=== PATIENT | male | born 1940 | race Caucasian/White ===

== ENCOUNTER → 2018-06-26 | Outpatient (CLI) | payer MEDICARE ==
[~2018-06-26] MED LIST: KEFLEX500 M1 PO; LYRICA300 MG PO; PREDNISONE 10 M10 MG PO; [UNRECOGNIZED DRUG - OTHER]
[2018-06-26 11:02] LABS: PROTIME 10.4 Seconds (9.20-11.50)
[2018-06-26 13:02] VITALS: BP 152/75
[2018-06-26 13:16] LABS: CSF CLARITY CLEAR; CSF COLOR COLORLESS; CSF RBC 114 /mm3; CSF WBC 2 /mm3 (0-10); VOLUME 20 ml
[2018-06-26 13:19] LABS: CSF GLUCOSE 55 mg/dl (40-70)
[2018-06-26 13:29] VITALS: BP 143/66
== END | disposition home or self-care (01) ==
LOC: M.RAD 09:47
PROVIDERS: Psychiatry & Neurology Neurology
DX: G91.2 (Idiopathic) normal pressure hydrocephalus (principal); R27.0 Ataxia, unspecified; Z79.899 Other long term (current) drug therapy; Z79.01 Long term (current) use of anticoagulants

== ENCOUNTER 2018-07-17 12:19 | Emergency (ER) | payer OTHER ==
[~2018-07-17] VITALS: Ht 170.2 cm; Wt 93.0 kg
[2018-07-17] MEDS ORDERED: PREDNISONE 10 M10 MG PO (12:38)
[2018-07-17] MEDS ORDERED: [UNRECOGNIZED DRUG - OTHER] (12:40)
[2018-07-17] MEDS ORDERED: LYRICA300 MG PO (12:41)
[2018-07-17] MEDS ORDERED: KEFLEX500 M1 PO (13:22)
[2018-07-17 13:34] VITALS: BP 155/70
== END 2018-07-17 13:36 | disposition home or self-care (01) ==
LOC: M.ERS 12:19
DX: S81.812A Laceration without foreign body, left lower leg, initial encounter (principal); W26.9XXA Contact with unspecified sharp object(s), initial encounter; Y93.89 Activity, other specified; Y92.89 Other specified places as the place of occurrence of the external cause; Y99.8 Other external cause status

== ENCOUNTER → 2019-04-26 | Outpatient (CLI) | payer OTHER | LOC: M.RAD 12:31 | DX: I51.7 Cardiomegaly (principal); Z86.11 Personal history of tuberculosis ==

== ENCOUNTER → 2019-04-27 | Outpatient (CLI) | payer OTHER | LOC: M.LAB 12:15 | DX: R05 Cough (principal); Z86.11 Personal history of tuberculosis ==

== ENCOUNTER → 2019-11-09 | Outpatient (CLI) | payer OTHER ==
[2019-11-09 17:13] LABS: ABSOLUTE BASOPHILS 0.1 thou/uL (0.0-0.2); ABSOLUTE EOSINOPHILS 0.3 thou/uL (0.0-0.7); ABSOLUTE NEUTROPHILS 7.3 thou/uL (1.6-8.1); BASOPHILS 0.5 %; EOSINOPHILS 3.4 %; HEMATOCRIT 41.7 % (42.0-52.0); LYMPHOCYTES 10.4 %; MCHC 33.5 g/dL (28.0-37.0); MCV 86.5 fL (80.0-100.0); MONOCYTES 10.2 %; MPV 8.3 fl. (7.2-11.1); NUCLEATED RBCS 0 /100WBC; PLATELET COUNT* 193 thou/uL (150-400); POLYS 75.5 %; RBC 4.82 mil/uL (4.50-6.00); RDW-CV 14.5 % (10.5-14.5); WBC 9.7 thou/uL (4.0-11.0)
[2019-11-09 17:21] LABS: CALCIUM 8.4 mg/dL (8.5-10.1); CREATININE 1.5 mg/dL (0.6-1.3); POTASSIUM 4.5 mmol/L (3.5-5.1)
[2019-11-09 17:27] LABS: ALBUMIN 3.5 g/dL (3.4-5.0); DIRECT BILIRUBIN 0.1 mg/dL (<0.1-0.3); TOTAL BILIRUBIN 0.8 mg/dL (<0.1-1.0); TOTAL PROTEIN 7.2 g/dL (6.4-8.2)
== END ==
LOC: M.LAB 16:45
PROVIDERS: Internal Medicine
DX: R05 Cough (principal); R11.0 Nausea; R53.83 Other fatigue; R06.2 Wheezing

== ENCOUNTER → 2019-11-10 | Outpatient (CLI) | payer OTHER | LOC: M.WC 08:00 | DX: L89.311 Pressure ulcer of right buttock, stage 1 (principal); L89.321 Pressure ulcer of left buttock, stage 1; L97.512 Non-pressure chronic ulcer of other part of right foot with fat layer exposed; S81.811A Laceration without foreign body, right lower leg, initial encounter; S90.424A Blister (nonthermal), right lesser toe(s), initial encounter; S91.104A Unspecified open wound of right lesser toe(s) without damage to nail, initial encounter; L03.115 Cellulitis of right lower limb; G89.29 Other chronic pain; K21.9 Gastro-esophageal reflux disease without esophagitis; M48.00 Spinal stenosis, site unspecified; F32.9 Major depressive disorder, single episode, unspecified; W19.XXXA Unspecified fall, initial encounter; Y93.89 Activity, other specified; Y92.89 Other specified places as the place of occurrence of the external cause; Y99.8 Other external cause status ==

== ENCOUNTER → 2019-11-17 | Outpatient (CLI) | payer OTHER | LOC: M.WC 04:42 | DX: L89.311 Pressure ulcer of right buttock, stage 1 (principal); L89.322 Pressure ulcer of left buttock, stage 2; L97.512 Non-pressure chronic ulcer of other part of right foot with fat layer exposed; S81.811D Laceration without foreign body, right lower leg, subsequent encounter; S90.424D Blister (nonthermal), right lesser toe(s), subsequent encounter; S91.101D Unspecified open wound of right great toe without damage to nail, subsequent encounter; L03.115 Cellulitis of right lower limb; L84 Corns and callosities; K21.9 Gastro-esophageal reflux disease without esophagitis; M48.00 Spinal stenosis, site unspecified; X58.XXXD Exposure to other specified factors, subsequent encounter ==

== ENCOUNTER → 2019-11-24 | Outpatient (CLI) | payer OTHER | LOC: M.WC 04:19 | PROVIDERS: ATTEND Surgery | DX: L89.322 Pressure ulcer of left buttock, stage 2 (principal); L89.311 Pressure ulcer of right buttock, stage 1; L97.512 Non-pressure chronic ulcer of other part of right foot with fat layer exposed; S81.811D Laceration without foreign body, right lower leg, subsequent encounter; S90.424D Blister (nonthermal), right lesser toe(s), subsequent encounter; L03.115 Cellulitis of right lower limb; G89.29 Other chronic pain; M48.00 Spinal stenosis, site unspecified; K21.9 Gastro-esophageal reflux disease without esophagitis; F32.9 Major depressive disorder, single episode, unspecified; X58.XXXD Exposure to other specified factors, subsequent encounter ==

== ENCOUNTER → 2019-12-01 | Outpatient (CLI) | payer OTHER | LOC: M.WC 04:49 | PROVIDERS: ATTEND Surgery | DX: S81.811D Laceration without foreign body, right lower leg, subsequent encounter (principal); L03.115 Cellulitis of right lower limb; L97.512 Non-pressure chronic ulcer of other part of right foot with fat layer exposed; L89.322 Pressure ulcer of left buttock, stage 2; L89.311 Pressure ulcer of right buttock, stage 1; S91.101D Unspecified open wound of right great toe without damage to nail, subsequent encounter; S90.424D Blister (nonthermal), right lesser toe(s), subsequent encounter; G89.29 Other chronic pain; K21.9 Gastro-esophageal reflux disease without esophagitis; M48.00 Spinal stenosis, site unspecified; F32.9 Major depressive disorder, single episode, unspecified; X58.XXXD Exposure to other specified factors, subsequent encounter ==

== ENCOUNTER → 2019-12-08 | Outpatient (CLI) | payer OTHER | LOC: M.WC 03:18 | PROVIDERS: ATTEND Surgery | DX: S81.811D Laceration without foreign body, right lower leg, subsequent encounter (principal); L97.512 Non-pressure chronic ulcer of other part of right foot with fat layer exposed; L89.311 Pressure ulcer of right buttock, stage 1; L89.322 Pressure ulcer of left buttock, stage 2; S90.424D Blister (nonthermal), right lesser toe(s), subsequent encounter; L03.115 Cellulitis of right lower limb; K21.9 Gastro-esophageal reflux disease without esophagitis; M48.00 Spinal stenosis, site unspecified; X58.XXXD Exposure to other specified factors, subsequent encounter ==

== ENCOUNTER → 2019-12-22 | Outpatient (CLI) | payer OTHER | LOC: M.WC 12-15 08:00 | PROVIDERS: ATTEND Surgery | DX: L89.322 Pressure ulcer of left buttock, stage 2 (principal); L89.311 Pressure ulcer of right buttock, stage 1; L97.512 Non-pressure chronic ulcer of other part of right foot with fat layer exposed; S81.811D Laceration without foreign body, right lower leg, subsequent encounter; S90.424D Blister (nonthermal), right lesser toe(s), subsequent encounter; L03.115 Cellulitis of right lower limb; G89.29 Other chronic pain; M48.00 Spinal stenosis, site unspecified; K21.9 Gastro-esophageal reflux disease without esophagitis; F32.9 Major depressive disorder, single episode, unspecified; X58.XXXD Exposure to other specified factors, subsequent encounter ==

== ENCOUNTER → 2020-01-05 | Outpatient (CLI) | payer OTHER | LOC: M.WC 05:13 | PROVIDERS: ATTEND Surgery | DX: S81.811D Laceration without foreign body, right lower leg, subsequent encounter (principal); L97.512 Non-pressure chronic ulcer of other part of right foot with fat layer exposed; S90.424D Blister (nonthermal), right lesser toe(s), subsequent encounter; L89.311 Pressure ulcer of right buttock, stage 1; L89.321 Pressure ulcer of left buttock, stage 1; L03.115 Cellulitis of right lower limb; G89.29 Other chronic pain; M48.00 Spinal stenosis, site unspecified; K21.9 Gastro-esophageal reflux disease without esophagitis; F32.9 Major depressive disorder, single episode, unspecified; X58.XXXD Exposure to other specified factors, subsequent encounter ==

== ENCOUNTER → 2020-01-19 | Outpatient (CLI) | payer OTHER | LOC: M.WC 04:42 | PROVIDERS: ATTEND Surgery | DX: L97.512 Non-pressure chronic ulcer of other part of right foot with fat layer exposed (principal); L89.311 Pressure ulcer of right buttock, stage 1; L89.321 Pressure ulcer of left buttock, stage 1; S81.811D Laceration without foreign body, right lower leg, subsequent encounter; S90.424D Blister (nonthermal), right lesser toe(s), subsequent encounter; G89.29 Other chronic pain; K21.9 Gastro-esophageal reflux disease without esophagitis; M48.00 Spinal stenosis, site unspecified; F32.9 Major depressive disorder, single episode, unspecified; X58.XXXD Exposure to other specified factors, subsequent encounter ==

== ENCOUNTER → 2020-02-16 | Outpatient (CLI) | payer OTHER | LOC: M.WC 04:17 | PROVIDERS: ATTEND Surgery | DX: S91.104D Unspecified open wound of right lesser toe(s) without damage to nail, subsequent encounter (principal); S91.101D Unspecified open wound of right great toe without damage to nail, subsequent encounter; S81.812A Laceration without foreign body, left lower leg, initial encounter; S81.811D Laceration without foreign body, right lower leg, subsequent encounter; S90.424D Blister (nonthermal), right lesser toe(s), subsequent encounter; L89.311 Pressure ulcer of right buttock, stage 1; L89.321 Pressure ulcer of left buttock, stage 1; L97.512 Non-pressure chronic ulcer of other part of right foot with fat layer exposed; G89.29 Other chronic pain; K21.9 Gastro-esophageal reflux disease without esophagitis; M48.00 Spinal stenosis, site unspecified; F32.9 Major depressive disorder, single episode, unspecified; X58.XXXD Exposure to other specified factors, subsequent encounter; W22.8XXA Striking against or struck by other objects, initial encounter; Y93.89 Activity, other specified; Y92.89 Other specified places as the place of occurrence of the external cause; Y99.8 Other external cause status ==